=== PATIENT | female | born 1935 | race Caucasian/White ===

== ENCOUNTER 2020-10-19 07:23 | Inpatient (IN) | payer OTHER ==
[~2020-10-19] VITALS: Ht 165.1 cm; Wt 88.0 kg
[2020-10-19] VITALS (18 sets, daily range): BP systolic 99–149; BP diastolic 49–100
--- NOTE | 2020-10-19 07:26 | NUR ---
TO ER BED 3, LUCYRA FOUND LYING ON THE FLOOR IN PRONE POSITION PER RA, ATTAHED TO MONITOR, SEEN BY .
[2020-10-19] MEDS ORDERED: FOLI0.4T6 PO (07:41)
[2020-10-19] MEDS ORDERED: LEVO50TA8 PO (07:41)
[2020-10-19] MEDS ORDERED: DOCU-141 PO (07:41)
[2020-10-19] MEDS ORDERED: FLUT16SP16 (07:41)
[2020-10-19] MEDS ORDERED: RISP0.2515 PO ×2 (07:41)
[2020-10-19] MEDS ORDERED: POLY17PO4 PO (07:41)
[2020-10-19] MEDS ORDERED: CITA20TA16 PO (07:41)
[2020-10-19] MEDS ORDERED: MELO-105 PO (07:41)
[2020-10-19] MEDS ORDERED: BLOO-668 IN (07:41)
[2020-10-19] MEDS ORDERED: CALC1TAB30 PO (07:41)
[2020-10-19] MEDS ORDERED: ALBU8.5H8 IH (07:41)
[2020-10-19] MEDS ORDERED: SENN-261 PO (07:41)
[2020-10-19] MEDS ORDERED: OMEP20CA15 PO (07:41)
[2020-10-19] MEDS ORDERED: DONE10TA44 PO (07:41)
[2020-10-19] MEDS ORDERED: METF-440 PO (07:41)
--- NOTE | 2020-10-19 07:49 | NUR ---
LAB AT BEDSIDE
--- NOTE | 2020-10-19 07:53 | NUR ---
COVID SWAB DONE AND SENT TO LAB
[2020-10-19 08:05] LABS: BASOPHILS # (AUTO) 0.1 K/uL (0.0-0.2); BASOPHILS % (AUTO) 0.4 % (0.0-2.0); EOSINOPHILS % (AUTO) 0.8 % (0.0-6.0); HEMATOCRIT 43 % (33-45); HEMOGLOBIN 14.2 g/dL (11.5-14.8); LYMPHOCYTES # (AUTO) 1.1 K/uL (0.8-4.8); LYMPHOCYTES % (AUTO) 8.4 % (20.0-44.0); MEAN CORPUSCULAR HGB CONC 33 g/dl (31.0-36.0); MEAN CORPUSCULAR VOLUME 92 fL (82-100); MONOCYTES # (AUTO) 0.6 K/uL (0.1-1.30); MONOCYTES % (AUTO) 4.7 % (2.0-12.0); NEUTROPHILS # (AUTO) 11.6 K/uL (1.8-8.9); NEUTROPHILS % (AUTO) 85.7 % (43.0-81.0); PLATELET COUNT (AUTO) 351 K/uL (150-450); RED BLOOD CELL COUNT(AUTO) 4.72 MIL/uL (4.0-5.2); WHITE BLOOD COUNT (AUTO) 13.6 K/uL (4.3-11.0)
[2020-10-19 08:16] LABS: CARBON DIOXIDE 16 mmol/L (21-32); CHLORIDE 99 mmol/L (98-107); CREATININE 1.3 mg/dL (0.6-1.3); GLUCOSE 260 mg/dL (74-106); POTASSIUM 3.8 mmol/L (3.5-5.1); SODIUM SERUM 136 mmol/L (136-145); UREA NITROGEN, BLOOD 17 mg/dL (7-18)
[2020-10-19 08:22] LABS: ALANINE AMINOTRANSFERASE 53 U/L (12-78); ALBUMIN 3.4 g/dL (3.4-5.0); ALKALINE PHOSPHATASE 82 U/L (46-116); ASPARTATE AMINOTRANSFERASE 43 U/L (15-37); BILIRUBIN,DIRECT 0.2 mg/dL (0.0-0.2); BILIRUBIN,TOTAL 0.7 mg/dL (0.2-1.0); TOTAL PROTEIN, SERUM 7.7 g/dL (6.4-8.2)
[2020-10-19 08:36] LABS: MAGNESIUM 1.1 mg/dL (1.8-2.4)
--- NOTE | 2020-10-19 08:39 | NUR ---
SPOKE TO SON JAN [phone] FOR UPDATE
[2020-10-19] MEDS ORDERED: Magnesium 1 GM/2 ML VIAL ONE (08:48)
[2020-10-19] MEDS ORDERED: Magnesium 1GM/D5W 100ML PREMIX 100 ML IV ONE (08:52)
[2020-10-19 08:57] LABS: ABG BASE EXCESS -4.6 mmol/L; ABG OXYGEN SATURATION 98.7 % (92.0-98.5); ABG PCO2 30.6 mmHg (35.0-45.0); ABG PH 7.406 (7.350-7.450); ABG PO2 138.6 mmHg (75.0-100.0); AaDO2 24.9 mmHg; COHb 0.9 % (0.5-1.5); MetHb 0.5 % (0.0-1.5); O2Hb 97.3 % (94.0-97.0); SITE, ABG Left Radial; VENT MODE, BG N/C
[2020-10-19] MEDS ORDERED: Magnesium 1 GM/2 ML VIAL IV ONE (09:00)
--- NOTE | 2020-10-19 09:03 | NUR ---
CALLED [facility], LEFT VOICEMAIL
[2020-10-19 09:10] LABS: THYROID STIMULATING HORMONE 47.594 uIU/mL (0.358-3.74)
--- NOTE | 2020-10-19 09:16 | NUR ---
CALLED [facility], AWAITING MD CALL BACK
[2020-10-19] MEDS ORDERED: IOHEXOL-350 100 ML VIAL IV ONE (09:19)
[2020-10-19] MEDS ORDERED: CT SWABBABLE VALVE TRANS SET 1 EA INFUS.SET MC ONE (09:19)
[2020-10-19] MEDS ORDERED: IV NS 0.9% 250 ML IV ONE (09:19)
[2020-10-19] MEDS ORDERED: IV NS 0.9% 1,000 ML BAG IV ONE (09:30)
[2020-10-19] MEDS ORDERED: PIPERACILLIN /TAZOBACTAM 3.375 G in IV D5W 50 ML IV ONE (09:30)
[2020-10-19 10:19] LABS: CREATINE KINASE, TOTAL 247 U/L (26-192)
--- NOTE | 2020-10-19 10:40 | NUR ---
CALLED [facility], LEFT VOICEMAIL
--- NOTE | 2020-10-19 10:56 | NUR ---
CALLED [facility] SECOND TIME NO RESPONSE, LEFT MESSAGE.
--- NOTE | 2020-10-19 11:56 | NUR ---
CALLED CT, SPOKE TO ANNABELLE, PT IS READY
--- NOTE | 2020-10-19 12:02 | NUR ---
PT WHEELED TO CT
--- NOTE | 2020-10-19 12:32 | NUR ---
CALLED [facility]
--- NOTE | 2020-10-19 12:43 | NUR ---
CALLED [facility], AWAITING MD CALL BACK
--- NOTE | 2020-10-19 12:51 | NUR ---
DR JUNG SPEAKING WITH DR COBIAN
--- NOTE | 2020-10-19 12:53 | NUR ---
SON JAN CAMPBELL SPEAKING WITH DR COBIAN
--- NOTE | 2020-10-19 12:55 | NUR ---
CALLED [facility]SING [facility] FOR ICU BED
[2020-10-19] MEDS ORDERED: ALTEPLASE 100 MG in WATER FOR INJECTION,STERILE 100 ML IV ONE (13:00)
--- NOTE | 2020-10-19 13:03 | NUR ---
Khadra MOLINA MD
--- NOTE | 2020-10-19 13:06 | NUR ---
ICU 259
--- NOTE | 2020-10-19 13:13 | NUR ---
GAVE REPORT TO [facility] 259
--- NOTE | 2020-10-19 13:15 | NUR ---
TPA to r ezequiel g 18 end time [phone]
[2020-10-19] MEDS ORDERED: ROCURONIUM BROMIDE 50 MG/5 ML IV ONE (13:59)
[2020-10-19] MEDS ORDERED: ETOMIDATE 2 MG/ML VIAL IV ONE (13:59)
[2020-10-19] MEDS ORDERED: MORPHINE SULFATE INJ 2 MG/ML DISP.SYRIN IV PRN (14:00)
[2020-10-19] MEDS ORDERED: Z GUARD REMEDY 2 OZ OINT TP PRN (14:00)
[2020-10-19] MEDS ORDERED: ACETAMINOPHEN 325 MG TABLET PO PRN (14:00)
[2020-10-19] MEDS ORDERED: ONDANSETRON HCL/PF 4 MG/2 ML VIAL IVP PRN (14:00)
[2020-10-19] MEDS ORDERED: LABETALOL 20 MG/4 ML VIAL IV PRN (14:00)
[2020-10-19] MEDS ORDERED: INSULIN REGULAR, HUMAN 100 UNIT/ML 3 ML VIAL SQ PRN (14:00)
[2020-10-19] MEDS ORDERED: ALBUTEROL FS 2.5 MG/3 ML VIAL.NEB IH PRN (14:00)
[2020-10-19] MEDS ORDERED: DEXTROSE 50%-WATER 50 ML DISP.SYRIN IV PRN (14:00)
[2020-10-19] MEDS: BLOOD SUGAR DIAGNOSTIC 1 EACH STRIP VI SCH ×3 (14:29→21:28)
[2020-10-19] MEDS ORDERED: HEPARIN INFUSION/D5W 500 ML IV PRN (14:30)
--- NOTE | 2020-10-19 14:50 | NUR ---
SECOND STEWARD NOTES PATIENT ADMITTED FROM ER 85Y/OLD FEMALE ON DX OF PE AND GETTING INFUSE ACTIVASE 50ML/HR ON RIGHT AC INTACT. PATIENT TELE, ON BEDSIDE MONITOR SHOWS HR- 95, A/O X2, WITH FORGETFULNESS, GET IRRITABLE EASILY. PATIENT ON O2-2LNC, NO ACUTE RESPIRATORY DISTRESS. SKIN ASSESSMENT DONE, PICTURE TAKEN, WOUND CONSULT TRIGGERED. VS TAKEN BP 120/76, T-98.7, R-21, O2-95 2LNC, P-95. PATIENT 191.8LB, DIABETIC DIET, BS-113MG/DL. IV ACCESS ON RIGHT AC #18, AND RIGHT HAND #[address] JUNG AND GET ORDER TO FOLLOW POST STEME ACS, AND WILL STARE HEPATIN DRIP NO BLOUSE. HEPARIN DOSING GUIDELINE COMPLETED AND SEND PHARMACY, PTT IS 21.6. ASSIST TURN AND REPOSTION Q2 HR. BED ALARM ON, SIDE RAILS UP FOR SAFETY. WILL FOLLOW UP.
--- NOTE | 2020-10-19 16:37 | NUR ---
RN NOTES STARTED HEPARIN DRIP AT THIS TIME 1000 UNITS /HR, ON RIGHT AC AREA INTACT. ALSO PATIENT GET MIDLINE INSERTION ORDER. WILL FOLLOW UP.
[2020-10-19] MEDS: DOCUSATE SODIUM 100 MG CAPSULE PO SCH (17:25)
--- NOTE | 2020-10-19 17:25 | NUR ---
RN NOTES PATIENT GETTING ECHO, AND DUPLEX VENOUS LOWER EXTREMITIES US AT THIS TIME, BS-114MG/DL. MONITORING BLEEDING PROTOCOL.
[2020-10-19] MEDS ORDERED: IV NS 0.9% 100 ML IV SCH (18:00)
--- NOTE | 2020-10-19 18:02 | NUR ---
RN NOTES GET CALL FROM LAB LACTIC ACID 3.4. NOTIFIED HOSPITALIST Dr NEAL, AND GET TO ORDER NS AT 80ML/HR. ORDER TAKEN AND CARRIED OUT.
--- NOTE | 2020-10-19 18:30 | NUR ---
RN NOTES BS-114 MG/DL. PATIENT TOLERATED DINNER WITH ASSIST 15%, PATIENT HAS NO BLEEDING, INFUSING HEPARIN 1000U, AND NS AT 80 ML/HR AT RIGHT AC. DUE MEDICATION ADMINISTERED, PM CARE DONE ASSIST TURN AND REPOSTION Q 2 HR, SON NEXT TO THE BED. CALL LIGHT WITHIN TO REACH. ENDORSED ONCOMING NURSE FOLLOW PLAN OF CARE.
[2020-10-19] MEDS: IV NS 0.9% 1,000 ML IV PRN (18:45)
--- NOTE | 2020-10-19 19:30 | NUR ---
RN NOTE RECEIVED PT IN BED, ALERT ORIENTED TO SELF, SON AT BEDSIDE. NO S/SX OF DISTRESS NOTED. ON ROOM AIR SATING 96%. DENIES ANY PAIN AT THIS TIME. PT ON HEPARIN DRIP AT 1000U/HR AND NS AT 80ML/HR. IV PATENT AND INTACT. NO S/SX OF BLEEDING NOTED. WILL CONTINUE TO MONITOR. ALL SAFETY MEASURES IN PLACE PER PROTOCOL.
[2020-10-19] MEDS: risperiDONE 0.25 MG TABLET PO SCH (21:20)
[2020-10-19] MEDS: DONEPEZIL 5 MG TABLET PO SCH (21:20)
[2020-10-19] MEDS: *INSULIN REGULAR(HUMULIN R)HUM 100 UNIT/ML VIAL SQ PRN (21:32)
--- NOTE | 2020-10-19 23:45 | NUR ---
rn note aptt result 53.6. no change on heparin drip dose per protocol. no s/sx of bleeding noted. will continue to monitor.
[2020-10-20] VITALS (24 sets, daily range): BP systolic 105–161; BP diastolic 51–94
[2020-10-20 05:34] LABS: BASOPHILS # (AUTO) 0.1 K/uL (0.0-0.2); BASOPHILS % (AUTO) 1.4 % (0.0-2.0); EOSINOPHILS % (AUTO) 2.6 % (0.0-6.0); HEMATOCRIT 38 % (33-45); HEMOGLOBIN 12.3 g/dL (11.5-14.8); LYMPHOCYTES # (AUTO) 1.7 K/uL (0.8-4.8); LYMPHOCYTES % (AUTO) 26.4 % (20.0-44.0); MEAN CORPUSCULAR HGB CONC 33 g/dl (31.0-36.0); MEAN CORPUSCULAR VOLUME 92 fL (82-100); MONOCYTES # (AUTO) 0.6 K/uL (0.1-1.30); MONOCYTES % (AUTO) 9.8 % (2.0-12.0); NEUTROPHILS # (AUTO) 3.9 K/uL (1.8-8.9); NEUTROPHILS % (AUTO) 59.8 % (43.0-81.0); PLATELET COUNT (AUTO) 295 K/uL (150-450); WHITE BLOOD COUNT (AUTO) 6.6 K/uL (4.3-11.0)
[2020-10-20 05:56] LABS: ALBUMIN 2.5 g/dL (3.4-5.0); BILIRUBIN,TOTAL 0.4 mg/dL (0.2-1.0); CALCIUM, SERUM 7.4 mg/dL (8.5-10.1); CREATININE 0.8 mg/dL (0.6-1.3); MAGNESIUM 1.3 mg/dL (1.8-2.4); PHOSPHORUS 4.4 mg/dL (2.5-4.9); POTASSIUM 3.4 mmol/L (3.5-5.1); TOTAL PROTEIN, SERUM 5.8 g/dL (6.4-8.2)
--- NOTE | 2020-10-20 06:15 | NUR ---
RN NOTE APTT 64.4. CONTINUE WITH HEPARIN DRIP OF 1000U/HR. NO S/SX OF BLEEDING. NO CHANGES IN LOC NOTED.
[2020-10-20] MEDS: IV NS 0.9% 1,000 ML IV PRN ×2 (06:25→21:45)
--- NOTE | 2020-10-20 06:42 | NUR ---
RN NOTE PT SLEEPING, AROUSES EASILY. NO DISTRESS NOTED. TOLERATING ROOM AIR. VS STABLE. NO CHANGES IN LOC NOTED. CONTINUE ON HEPARIN DRIP AND NS AT 80ML/HR, NO S/SX OF INFILTRATION NOTED. KEPT CLEAN AND DRY, NO NEW SKIN BREAKDOWN NOTED. ALL SAFETY MEASURES MAINTAINED.
[2020-10-20] MEDS ORDERED: LEVOTHYROXINE SODIUM 50 MCG TABLET PO SCH (07:30)
[2020-10-20] MEDS: BLOOD SUGAR DIAGNOSTIC 1 EACH STRIP VI SCH ×4 (07:43→21:45)
--- NOTE | 2020-10-20 07:45 | NUR ---
RN NOTE PATIENT IS CURRENTLY IN BED WITH HOB AT SEMI LEAL'S POSITION. PATIENT IS ON ROOM AIR WITH NO SIGNS OF LABORED BREATHING. PATIENT IS AOX1. RHAND #18 IS PATENT AND INTACT. BED IS LOCKED IN THE LOWEST POSITION, 3 GUARD RAILS RAISED, CALL VITALE WITHIN REACH, AND ALL HOSPITAL SAFETY PRECAUTIONS ARE BEING FOLLOWED. WILL CONTINUE TO MONITOR THROUGHOUT SHIFT.
[2020-10-20] MEDS: *INSULIN REGULAR(HUMULIN R)HUM 100 UNIT/ML VIAL SQ PRN (07:46)
[2020-10-20] MEDS: DOCUSATE SODIUM 100 MG CAPSULE PO SCH ×2 (08:03→18:53)
[2020-10-20] MEDS: POLYETHYLENE GLYCOL 3350 17 GM POWD.PACK PO SCH (08:03)
[2020-10-20] MEDS: CITALOPRAM HYDROBROMIDE 20 MG TABLET PO SCH (08:03)
[2020-10-20] MEDS: PANTOPRAZOLE 40 MG TABLET.DR PO SCH (08:03)
[2020-10-20] MEDS: risperiDONE 1 MG TABLET PO SCH (08:03)
[2020-10-20] MEDS: FOLIC ACID 1 MG TABLET PO SCH (08:03)
[2020-10-20] MEDS: FLUTICASONE PROPIONATE 16 GM BOTTLE NS SCH (08:06)
--- NOTE | 2020-10-20 10:00 | NUR ---
RN NOTE HEPARIN DRIP STOPPED PER REQUEST OF DR. ZARATE. WILL CONTINUE TO MONITOR.
[2020-10-20] MEDS: Magnesium 1GM/D5W 100ML PREMIX 100 ML IV SCH ×4 (10:10→13:45)
[2020-10-20] MEDS ORDERED: APIX5TAB PO (10:42)
[2020-10-20] MEDS ORDERED: POTASSIUM CHLORIDE 20 MEQ TAB.PRT.SR PO SCH (11:00)
[2020-10-20] MEDS: APIXABAN 5 MG TABLET PO SCH ×2 (12:47→21:43)
--- NOTE | 2020-10-20 14:40 | NUR ---
RN NOTE PATIENT TRANSFERRED TO [facility] ROOM 105. REPORT GIVEN TO ROD AL FOR BILL.
--- NOTE | 2020-10-20 19:24 | NUR ---
CHANGE OF SHIFT REPORT PT RESTING COMFORTABLY IN BED. NO S/S OR C.O PAIN OR DISTRESS NOTED. SIDE RAILS UP X2, CALL LIGHT LEFT WITHIN REACH. PT KEPT CLEAN, DRY, AND COMFORTABLE. REPORT GIVEN TO SHANNON VELASCO.
--- NOTE | 2020-10-20 20:30 | NUR ---
dr. alexander in to see patient. did not enter room for concerns for covid patient seen and spoke too through window. no new orders recieved.
[2020-10-20] MEDS: DONEPEZIL 5 MG TABLET PO SCH (21:44)
[2020-10-20] MEDS: risperiDONE 0.25 MG TABLET PO SCH (21:45)
[2020-10-21] VITALS: BP 124/50
[2020-10-21 00:30] VITALS: BP 117/62
--- NOTE | 2020-10-21 01:05 | NUR ---
PATIENT TRANSFERRED TO [facility] BED 2 UNDER ACLS PROTOCOL. PATIENT IN NO APPARENT DISTRESS. ST ON MONITOR AT 104. BEDSIDE REPORT GIVEN TO KARIN VELASCO.
--- NOTE | 2020-10-21 01:10 | NUR ---
RN OPENING NOTES RECEIVED PT FROM SUE @0100 VIA BED ACCOMPANIED BY RN. PT AWAKE AND VERBAL, A/O X1 TO NAME ONLY. RESPIRATIONS EVEN AND UNLABORED, ON ROOM AIR AND TOLERATING WELL. NOTED IV ACCESS ON RH #20 INTACT, PATENT AND FLUSHES WELL. SKIN ASSESSMENT DONE. POSITIONED PT FOR COMFORT. SHE DENIES ANY PAIN OR DISCOMFORT AT THIS TIME. PROVIDED ORIENTATION TO ROOM AND STAFF. PT IN NO ACUTE DISTRESS. SAFETY MEASURES IN PLACE, BED IN LOWEST LOCKED POSITION, S/R UP X2, CALL LIGHT WITHIN EASY REACH. WILL CONTINUE TO MONITOR.
--- NOTE | 2020-10-21 04:00 | NUR ---
RN NOTES PATIENT REFUSED TO HAVE HER V/S CHECKED
--- NOTE | 2020-10-21 06:19 | NUR ---
BS 132 MG/DL. PT REFUSED REGULAR INSULIN COVERAGE OF 2 UNITS DESPITE EXPLANATION.
--- NOTE | 2020-10-21 06:38 | NUR ---
RN CLOSING NOTES PT RESTING IN BED, EASILY AROUSABLE TO STIMULI, A/O X1. BREATHING EVEN/UNLABORED, ON ROOM AIR AND TOLERATING WELL. IV ACCESS ON RH #20 INTACT, PATENT, INFUSING NS @80ML/HR. PT IN NO ACUTE DISTRESS. SAFETY MEASURES IN PLACE, BED IN LOWEST LOCKED POSITION, S/R UP X2, CALL LIGHT WITHIN EASY REACH.
[2020-10-21] MEDS: BLOOD SUGAR DIAGNOSTIC 1 EACH STRIP VI SCH ×2 (06:42→12:16)
[2020-10-21] MEDS ORDERED: LEVOTHYROXINE SODIUM 75 MCG TABLET PO SCH (07:30)
[2020-10-21 08:00] VITALS: BP 147/116
[2020-10-21] MEDS: risperiDONE 1 MG TABLET PO SCH (08:22)
[2020-10-21] MEDS: CITALOPRAM HYDROBROMIDE 20 MG TABLET PO SCH (08:22)
[2020-10-21] MEDS: PANTOPRAZOLE 40 MG TABLET.DR PO SCH (08:22)
[2020-10-21] MEDS: FOLIC ACID 1 MG TABLET PO SCH (08:22)
[2020-10-21] MEDS: DOCUSATE SODIUM 100 MG CAPSULE PO SCH (08:22)
[2020-10-21] MEDS: POLYETHYLENE GLYCOL 3350 17 GM POWD.PACK PO SCH (08:23)
[2020-10-21] MEDS: APIXABAN 5 MG TABLET PO SCH (08:23)
[2020-10-21] MEDS: FLUTICASONE PROPIONATE 16 GM BOTTLE NS SCH (08:24)
[2020-10-21 09:54] LABS: BASOPHILS # (AUTO) 0.1 K/uL (0.0-0.2); BASOPHILS % (AUTO) 1.2 % (0.0-2.0); HEMATOCRIT 36 % (33-45); HEMOGLOBIN 11.9 g/dL (11.5-14.8); LYMPHOCYTES # (AUTO) 1.4 K/uL (0.8-4.8); LYMPHOCYTES % (AUTO) 20.6 % (20.0-44.0); MEAN CORPUSCULAR HGB CONC 33 g/dl (31.0-36.0); MEAN CORPUSCULAR VOLUME 91 fL (82-100); MONOCYTES # (AUTO) 0.5 K/uL (0.1-1.30); MONOCYTES % (AUTO) 7.4 % (2.0-12.0); NEUTROPHILS # (AUTO) 4.5 K/uL (1.8-8.9); NEUTROPHILS % (AUTO) 67.8 % (43.0-81.0); PLATELET COUNT (AUTO) 309 K/uL (150-450); RED BLOOD CELL COUNT(AUTO) 3.92 MIL/uL (4.0-5.2); WHITE BLOOD COUNT (AUTO) 6.7 K/uL (4.3-11.0)
[2020-10-21 11:07] LABS: CALCIUM, SERUM 7.5 mg/dL (8.5-10.1); CREATININE 0.8 mg/dL (0.6-1.3); POTASSIUM 3.5 mmol/L (3.5-5.1)
[2020-10-21 12:31] LABS: ALBUMIN 2.8 g/dL (3.4-5.0); BILIRUBIN,TOTAL 0.7 mg/dL (0.2-1.0); TOTAL PROTEIN, SERUM 6.2 g/dL (6.4-8.2)
[2020-10-21] MEDS: *INSULIN REGULAR(HUMULIN R)HUM 100 UNIT/ML VIAL SQ PRN (12:42)
[2020-10-21] MEDS: IV NS 0.9% 1,000 ML IV PRN (12:49)
--- NOTE | 2020-10-21 13:35 | NUR ---
NIGHT STOCKEREXERCISE SCIENCE INSTRUCTOR NOTE PATIENT DISCHARGED VIA AMBULANCE @ 1330. PATIENT STABLE, A/O X1 - NO CHANGE IN LOC. STABLE ON ROOM AIR. ALL EXITCARE REVIEWED WITH PATIENT - NOT ABLE TO VERBALIZE UNDERSTANDING. ALL EXITCARE AND EDUCATION GIVEN TO EMT'S IN DISCHARGE FOLDER. IV ACCESS REMOVED. WRISTBAND REMOVED. PATIENT ACCOMPANIED TO LOBBY BY EMT'S VIA [place]. AWARE. CHARGE NURSE AWARE.
== END 2020-10-21 13:30 | DRG 175 ==
LOC: ER 07:26 → ICU 13:10 → TELE1 10-20 14:59 → TELE 10-21 00:57
PROVIDERS: ADMIT Internal Medicine; ATTEND Internal Medicine
DX: I26.92 Saddle embolus of pulmonary artery without acute cor pulmonale (principal); R57.0 Cardiogenic shock; E87.2 Acidosis; L97.419 Non-pressure chronic ulcer of right heel and midfoot with unspecified severity; N17.9 Acute kidney failure, unspecified; K21.9 Gastro-esophageal reflux disease without esophagitis; F03.90 Unspecified dementia, unspecified severity, without behavioral disturbance, psychotic disturbance, mood disturbance, and anxiety; E83.42 Hypomagnesemia; E11.65 Type 2 diabetes mellitus with hyperglycemia; Z20.822 Contact with and (suspected) exposure to COVID-19; F41.9 Anxiety disorder, unspecified; F32.9 Major depressive disorder, single episode, unspecified; F39 Unspecified mood [affective] disorder; E03.9 Hypothyroidism, unspecified; M50.30 Other cervical disc degeneration, unspecified cervical region; Z88.2 Allergy status to sulfonamides; Z88.8 Allergy status to other drugs, medicaments and biological substances; E11.40 Type 2 diabetes mellitus with diabetic neuropathy, unspecified; E11.621 Type 2 diabetes mellitus with foot ulcer; F09 Unspecified mental disorder due to known physiological condition; Z79.51 Long term (current) use of inhaled steroids; Z79.84 Long term (current) use of oral hypoglycemic drugs; Z79.899 Other long term (current) drug therapy; I10 Essential (primary) hypertension; I67.2 Cerebral atherosclerosis; Z91.81 History of falling
CPT/HCPCS: 36415; 36600; 70450-TC; 71045-TC; 72125-TC; 80048-TC; 80053-TC; 80076-TC; 82010-TC; 82550-TC; 82553; 82803-TC; 82962-TC; 83605-TC; 83735-TC; 83880; 84100-TC; 84439-TC; 84443-TC; 84481; 84484-TC; 85025-TC; 85378-TC; 85730-TC; 87040-TC; 87081-TC; 93307-TC; 93970-TC; C9803; G0378; J1644; J1815; J2543; J2997; J3475; J3490; J7030; J7050; J7060; Q9967; U0003